=== PATIENT | male | born 1985 | race Caucasian/White ===

== ENCOUNTER 2019-05-02 17:23 | Inpatient (IN) ==
[2019-05-02] MEDS ORDERED: MoRPHine SULFATE 10 MG/ML CARP/VIAL IV STA ×3 (17:32→20:02)
[2019-05-02] MEDS ORDERED: SODIUM CHLORIDE 0.9% 1000ML 1,000 ML IV SCH (17:45)
[2019-05-02 18:06] LABS: Basophils # (auto) 0.02 K/uL (0-0.2); Basophils % (auto) 0.2 %; Eosinophils # (auto) 0.04 K/uL (0-0.5); Eosinophils % (auto) 0.4 %; Hematocrit (blood only) 38.5 % (42-52); Hemoglobin 12.8 g/dL (14.0-18.0); Immature Granulocytes # (auto) 0.03 K/uL (0.00-0.02); Immature Granulocytes % (auto) 0.3 %; Lymphocytes # (auto) 1.07 K/uL (1.2-3.4); Lymphocytes % (auto) 11.4 %; Mean Corpuscular Hemoglobin 31.1 pg (25-34); Mean Corpuscular Hgb Conc 33.2 g/dL (32-36); Mean Corpuscular Volume 93.7 fL (80-100); Mean Platelet Volume 10.2 fL (7.4-10.4); Monocytes # (auto) 0.36 K/uL (0.11-0.59); Monocytes % (auto) 3.8 %; Neutrophils % (auto) 83.9 %; Platelet Count 212 K/uL (130-400); RDW Coefficient of Variation 13.7 % (11.5-14.5); RDW Standard Deviation 47.4 fL (36.4-46.3); Red Blood Count 4.11 M/uL (4.7-6.1); White Blood Count 9.42 K/uL (4.8-10.8)
--- NOTE | 2019-05-02 18:17 | XRay Report ---
XR chest 1V portable CLINICAL HISTORY: Trauma. Right femoral fracture. Preoperative chest. COMPARISON STUDY: No previous studies for comparison. FINDINGS: The cardiac and mediastinal contours appear normal given the supine technique. No pneumotho rax is visualized on the supine study. There is no focal pulmonary consolidation. No pleural effusion s are visualized.[ IMPRESSION: No active disease in the chest. Electronically signed by: Aakash Reeder M.D. 05/02/2019 6:14 PM
--- NOTE | 2019-05-02 18:17 | XRay Report ---
XR pelvis 1-2V routine CLINICAL HISTORY: Right femoral pain. Trauma. COMPARISON: None. DISCUSSION: There is an intertrochanteric right hip fracture with subtrochanteric extension. There is no dislocation. There is no SI joint diastases. There is no symphysis diastases. IMPRESSION: Intertrochanteric right hip fracture with subtrochanteric extension Electronically signed by: Aakash Reeder M.D. 05/02/2019 6:15 PM
--- NOTE | 2019-05-02 18:21 | XRay Report ---
XR femur RT 2V routine CLINICAL HISTORY: Right femur pain COMPARISON: None. DISCUSSION: There is an oblique fracture of the proximal femur with intertrochanteric extension. The fracture begins 15 cm inferior to the intertrochanteric line. There is 18 mm of maximal distraction. There is no dislocation. IMPRESSION: Oblique fracture of the proximal femur with intertrochanteric extension Electronically signed by: Aakash Reeder M.D. 05/02/2019 6:19 PM
[2019-05-02 18:23] LABS: Alanine Aminotransferase 30 U/L (12-78); Albumin Level 4.1 gm/dl (3.4-5.0); Aspartate Aminotransferase 24 U/L (15-37); BUN Creatinine Ratio 26.9 (10-20); Blood Urea Nitrogen 24 mg/dl (7-18); Calcium 8.8 mg/dl (8.5-10.1); Carbon Dioxide 27 mmol/L (21-32); Chloride 104 mmol/L (98-107); Est GFR (African American) 129.6; Est GFR (Non-African American) 111.8; Glucose 113 mg/dl (70-99); Potassium 3.5 mmol/L (3.5-5.1); Sodium 138 mmol/L (136-145)
[2019-05-02 18:25] LABS: Albumin Globulin Ratio 1.3 (0.9-2); Alkaline Phosphatase 51 U/L (45-117); Bilirubin,Total 0.6 mg/dl (0.2-1); Globulin 3.1 gm/dl (2.5-4.0); Total Protein 7.2 gm/dl (6.4-8.2)
[2019-05-02] MEDS ORDERED: MoRPHine SULFATE 4 MG/ML 1 ML CARP\\VIAL ONE ×2 (18:53→20:04)
[2019-05-02] MEDS ORDERED: ONDANSETRON INJ 2 MG/ML 2 ML VIAL IV STA (18:53)
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
[2019-05-02] MEDS ORDERED: ACETAMINOPHEN 325 MG TAB PO PRN (20:17)
[2019-05-02] MEDS ORDERED: ONDANSETRON INJ 2 MG/ML 2 ML VIAL IV PRN (20:17)
[2019-05-02] MEDS ORDERED: ALUMINUM/MAGNESIUM SUSP 30 ML UDC PO PRN (20:22)
[2019-05-02] MEDS ORDERED: OXYCODONE HCL IR 5 MG TAB (IMMEDIATE RELEASE) PO PRN (20:25)
[2019-05-02] MEDS ORDERED: MoRPHine SULFATE 4 MG/ML 1 ML CARP\\VIAL IV PRN (20:26)
[2019-05-02] MEDS ORDERED: diazePAM 2 MG TABLET PO PRN (20:27)
[2019-05-02] MEDS ORDERED: ACETAMINOPHEN 500 MG TAB PO PRN (20:29)
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
[2019-05-02] MEDS: SODIUM CHLORIDE 0.9% 1000ML 1,000 ML IV SCH (23:43)
[2019-05-03] MEDS ORDERED: CEFAZOLIN 2000MG 2,000 MG/15 ML SYR IV SCH ×2 (06:00→20:00)
--- NOTE | 2019-05-03 08:23 | Anesthesiology Consultation ---
Date of Service May 03, 2019 Assessment & Plan Chart Review Chart Review: Acceptable Risk for Surgery and Patient NOT seen in Pre Admission Testing Consults Requested none ASA ASA2 Proposed Anesthesia Anesthesia Type: General and MAC Spinal History Surgery Operation Date: 05/03/19 10:30 Proposed Procedures p Intramedullary Ricky Femur(Right) - Will Campbell Height/Weight Height: 5 ft 11 in Weight: 84.3 kg Allergies Allergy/AdvReac Type Severity Reaction Status Date / Time No Known Allergies Allergy Verified 05/02/19 20:36 Medications Home Medications Medication Instructions Recorded Confirmed Last Taken No Known Home Medications 05/02/19 05/02/19 Unknown Active Medications Generic Name Dose Route Start Last Admin Trade Name Freq PRN Reason Stop Dose Admin Sodium Chloride 1,000 mls @ 100 mls/hr 05/02/19 23:59 05/02/19 23:43 Nss 1000ml IV 06/01/19 23:58 100 mls/hr .Q10H ZACKARY Administration Morphine Sulfate 4 mg 05/02/19 20:26 05/03/19 02:27 Morphine Sulfate IV 05/16/19 20:25 4 mg Q4H PRN Administration Pain NPO Date Last Intake of Fluids: 05/03/19 Time Last Intake of Fluids: 00:00 Date Last Intake of Solids: 05/02/19 Time Last Intake of Solids: 22:00 Past Medical History Medical History No pertinent family history Non-smoker Tibial fracture Left tibia IMN Exercise / Class Metabolic Activity II 4-5 Yardwork/Stairs/Walk up hill Past Anesthesia History No Hx of Anesthesia Complications and No Family Hx of Anesthesia Complications History of PONV No Hx of PONV and No Hx of Motion Sickness Social History Smoking Status: Never smoker Do You Dip or Chew Tobacco: No Hx Alcohol Use: No Hx Substance Use: No Physical Exam Vital Signs Last Vital Signs Temp 37 C 05/03/19 08:01 Pulse 80 05/03/19 08:01 Resp 16 05/03/19 08:01 BP 132/79 05/03/19 08:01 Pulse Ox 98 05/03/19 08:01 Testing Laboratory Results 05/02/19 17:40 05/02/19 17:40 Blood Type A Negative 05/02/19 20:36 Antibody Screen NEGATIVE 05/02/19 20:36 Chest X-Ray Date: 05/02/19 Findings: + NAD
[2019-05-03] MEDS: SODIUM CHLORIDE 0.9% 1000ML 1,000 ML IV SCH ×2 (09:23→16:57)
[2019-05-03] MEDS ORDERED: FLUMAZENIL 0.1 MG/1 ML 10 ML VIAL IV PRN (10:13)
[2019-05-03] MEDS ORDERED: NALOXONE HCL 0.4 MG/1 ML VIAL/CARP IV PRN ×2 (10:13→16:14)
[2019-05-03] MEDS ORDERED: ePHEDrine sulfate 50 MG/ML AMP IV PRN (10:13)
[2019-05-03] MEDS ORDERED: HYDROmorphone INJ 1 MG/ML SYRINGE IV PRN (10:13)
[2019-05-03] MEDS ORDERED: ONDANSETRON INJ 2 MG/ML 2 ML VIAL IV PRN (10:13)
[2019-05-03] MEDS ORDERED: ATROPINE SULFATE 0.1 MG/ML 10ML SYR IV PRN (10:13)
[2019-05-03] MEDS ORDERED: PROMETHAZINE HCL 12.5 MG in SODIUM CHLORIDE 0.9% 50 ML IV PRN (10:13)
[2019-05-03] MEDS ORDERED: ONDANSETRON INJ 2 MG/ML 2 ML VIAL ONE (10:35)
[2019-05-03] MEDS ORDERED: NEOSTIGMINE METHYLSULFATE 5 MG/5 ML SYR ONE (10:35)
[2019-05-03] MEDS ORDERED: MIDAZOLAM HCL 1 MG/ML 2ML VIAL ONE (10:35)
[2019-05-03] MEDS ORDERED: DEXAMETHASONE SOD INJ 4 MG/ML VIAL ONE (10:35)
[2019-05-03] MEDS ORDERED: GLYCOPYRROLATE 0.2 MG/ML VIAL ONE (10:35)
[2019-05-03] MEDS ORDERED: PROPOFOL IV EMULSION 10 MG/ML 20 ML VIAL IV ONE (10:35)
[2019-05-03] MEDS ORDERED: LIDOCAINE HCL 2% 2 ML VIAL/AMP(20MG/ML) INFIL ONE (10:35)
[2019-05-03] MEDS ORDERED: fentaNYL citrate 100 MCG/2 ML VIAL ONE ×2 (10:36→11:51)
[2019-05-03] MEDS ORDERED: BUPIVACAINE 0.5 % 5 MG/1 ML MPF 30ML VIAL ONE (10:44)
[2019-05-03] MEDS ORDERED: EPINEPHrine INJ 1 MG/ML AMP ONE (10:44)
[2019-05-03] MEDS ORDERED: HYDROmorphone INJ 2 MG/ML SYR/VIAL ONE (12:08)
[2019-05-03] MEDS ORDERED: ALBUMIN HUMAN 5% 12.5 GM/250 ML VIAL IV ONE (13:00)
[2019-05-03 14:03] LABS: Hematocrit (blood only) 29.7 % (42-52); Hemoglobin 10.2 g/dL (14.0-18.0)
[2019-05-03] MEDS ORDERED: ESMOLOL HCL INJ 10 MG/ML 10ML VIAL IV ONE (14:33)
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
--- NOTE | 2019-05-03 15:07 | Post Operative Brief Note ---
PG Immediate Post Op with CF Date of Surgery May 03, 2019 Pre & Post Diagnosis Operation Date: 05/03/19 10:30 Pre-Op Diagnosis: displaced and comminuted proximal right femur fracture Post-Op Diagnosis: displaced and comminuted proximal right femur fracture I identified the patient and participated in the time-out.: Yes Procedure Operation Date: 05/03/19 10:30 Actual Procedures p closed reudction right femur; Intramedullary Ricky Right Femur; Right knee aspiration(Right) - Will Cambpell Surgeon Will Campbell Dry Wall Applicator Kulwinder Teague PA-C Estimated Blood Loss 1,000 Findings Consistent with Post-Op Diagnosis Specimens Specimen Description: none per surgeon. Drains Monreal Catheter
--- NOTE | 2019-05-03 15:08 | History & Physical Bridge Note ---
Date of Service May 03, 2019 History & Physical Bridge Note I have examined the patient, reviewed the History & Physical and in the interval since the performance of the History & Physical I have noted the following changes of clinical significance: no changes noted The patient had an uncomplicated night and was ready for the OR in the am. The informed consent was documented before leaving the preop holding area. The limb was signed
--- NOTE | 2019-05-03 15:08 | Operative Report ---
PG Post Operative Report Pre & Post Diagnosis Operation Date: 05/03/19 10:30 Pre-Op Diagnosis: displaced and comminuted proximal right femur fracture Post-Op Diagnosis: displaced and comminuted proximal right femur fracture I identified the patient and participated in the time-out.: Yes Procedure Operation Date: 05/03/19 10:30 Actual Procedures p closed reudction right femur; Intramedullary Ricky Right Femur; Right knee aspiration(Right) - Will Campbell Surgeon Will Campbell Pecan Mallow Dipper Kulwinder Teague PA-C Estimated Blood Loss 1,000 Findings See Below Fracture with significantly comminuted through the subtrochanteric region as expected. The most proximal fragment that included the head and neck and anterior sub-stroke region was captured with a cable which did reduce the 3 main proximal fragment was adequately to get our start point. We then needed traction and internal rotation to reduce the distalmost part of the subtrochanteric comminution. Were able to pass the wire and ream and then redu ce with the nail through the most distal extent of the comminution into the diaphysis of the femur. The femur was fixed with an 11 mm / 130 degree titanium cannulated trochanteric fixation nail of the length of 400 mm. We also used a 11 mm titanium helical blade of 105 mm length. We also used a 1.7 mm cobalt chromium cable with titanium cramp by [employer]. We also use a 5 x 48 mm distal interlock screw and a 5 x 46 mm distal interlock screw. 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 Surgical stabilization was recommended. Description of Procedure Once we had completed our reaming we advanced the nail over the straight wireOn the day of surgery the patient was greeted in the preoperative holding area. He had been admitted for pain control overnight in preparation for the OR in the morning. Informed consent was reviewed and confirmed at that time. Signed informed consent was signed. The operative side was verified by the patient and signed by myself. He was turned over the anesthesia team. He was taken the operative room placed supine on the fracture table and anesthesia was induced and the airway was secured. He was then positioned for surgery with a peroneal post. He was placed in the fracture boot on the operative side with adequate padding and double secured with Coban dressing. Nonoperative side was then placed in a pillow sling against the well leg beam. Provisional fluoroscopy was positioned to ensure adequate viewing. Surgical timeout was called by the circulating nurse and verified by all present. Antibiotics and diffuse equipment was available and functional. The operative site was confirmed. We began the procedure by performing reduction maneuvers which included sequential hip flexion, followed by longitudinal traction, followed by release of this traction and adjustment of internal/external rotation until the main fracture fragments were appropriately aligned. He remained with some flexion to the most proximal head neck fragment that extended towards the substernal region. Once we had provisional reduction we then prepped and draped the right lower extremity in usual sterile fashion for hip fractures and a fracture table. Longitudinal incision was planned over the proximal femur in the middle aspect of the IT band. Incision was made and sharp dissection was carried down with Bovie electrocautery for hemostasis. We elevated anterior and posterior flaps to expose the IT band. We then identified the central point made a longitudinal split from the trochanteric region distally approximately 10 cm. We then evaluate the vastus which had significant ecchymosis. We did have to make a T-incision in the IT band to allow appropriate exposure of the lateral femur. Then you performed a vastus split to expose the lateral femur. Able to feel the major fragmentation anteriorly. We then adjusted her rotation to allow the most optimal route provisional reductio n. Given that we cannot control the flexion of the proximal fragments in the medial spike a cable was then placed. We used fluoroscopy to position the cable passer over this medial spike just under the lesser tuberosity and then passed a titanium cable around this area. We then used the tensor device which did sequentially reduce the spike can pull that proximal fragment out of flexion. 50 kg of pressure was placed on the cable and it was left provisionally locked. This reduced our proximal comminution well. We then adjusted our distal alignment. We did take some lateral pressure to pull out proximal fragment out of valgus correction out of varus. We then determined that we had our best provisional reduction and began our start point. A pin was adjusted towards the tip of the greater to trochanter and a small spoke: Incision was made. We passed the pin down to the start point and confirmed its position using fluoroscopy. A larger skin incision was made proximally to allow passage of the reamer and cannulas. Once her start point was established were able to advance the pin. Significant effort was made to ensure appropriate position and a more medial start point over the trochanter. We also treated posteriorly for predictable reduction of the proximal comminution and capture of the main posterior lateral fragment. The pin was passed past the lesser trochanter under fluoroscopic guidance both AP and lateral plane. We then used the opening reamer and focused on removing lateral bone on the trochanter to ensure we avoided varus position as much as possible. We advanced the opening reamer slowly towards the lesser trochanter into the proximal aspect of the comminuted fracture segment. We then removed the reamer and passed a reduction wire with a bent tip. We then watch this tip as it passed into the diaphysis of the femur at the distal aspect of the comminuted segment. We are able to pass the wire adequately into the distal femur and down towards the proximal pole of the patella. We then began reaming at 8.5 removed by 0.5 and 1 cm increments towards a 12.5. Each time we watched the reamer past the major comminuted fragment at the distal aspect that did remain with some deformity that was not reducible unless another large incision was made. The reamer did help realign some of the fragments and adequately open up the diaphysis for passage of the nail. We then swapped our nails through reduction cannula because the large band would not allow passes or reamer distally. We were able to ream to the 12.5 to the far and down to the proximal pole the patella.. We use the bed to the nail to pass the nail and capture distal diaphyseal fragment. Once it was captured the nail was rotated back to reduce that fragment which did reduce it well. The nail was then passed under fluoroscopic guidance down to the distal femur to the level of the proximal pole the patella. We did have to tap the nails with a mallet to pass through the tight diaphysis. Once the nail was in place we did release traction and adjusted rotation under fluoroscopic guidance. We then planned our cephalo-medullary screw. Once the nail was distal lysed enough we drilled for our cephalo-medullary blade screw. We had to adjust to achieve the center center position by directing her pain more anteriorly. Once she had center center on the AP we did confirm this on the lateral. The wire did want to cheat posteriorly and we had to readjust more anterior trajectory. Once we had center center position we drilled the lateral cortex followed by the triple reamer to open up for the helical blade. We measured using the cannula system to a length of 110, so we selected 105 mm helical blade. The blade was passed over the wire per the blower insulator's directions and did achieve adequate purchase in the femoral head neck. We appear to have adequate reduction of that proximal fragment include the femoral head neck. Once that proximal fragments captured we ensure there was no traction left on the femur and wiggle the foot to ensure that did not fracture can settle to its appropriate level. We did evaluate on fluoroscopy appeared to have good reduction using a cortical keys. We then moved distally to perform a interlock screws. These were done with a perfect [place] method and we used 2 interlock screws. We then thoroughly irrigated all the incisions. We began our closure. The IT band T cut was closed using 0 Ethibond suture. We then closed the deep dermal layers in the distal fascial band incisions with 0 Vicryl suture. We then closed the deep dermis using 3-0 Vicryl followed by geraldine in her final subcuticular closure. Wounds were dressed with sterile Xeroform sterile gauze and foam tape. Patient tolerated procedure well, was repositioned on his hospital bed and extubated in the operating room. He was transported the PACU in stable condition. Disposition: He will begin with partial weightbearing and advance quickly towards weightbearing as tolerated. He will be in the hospital to undergo physical therapy to be stable for discharge or transfer to a rehabilitation hospital. He did state his preference to be to go home as soon as possible. We will use routine DVT prophylaxis consisting of low molecular weight heparin, with likely transition to aspirin to encourage patient compliance. I attest to the content of the Intraoperative Record and any orders documented therein. Any exceptions are noted below.
[2019-05-03] MEDS ORDERED: HYDROmorphone INJ 0.5 MG/0.5 ML SYR IV PRN (15:19)
--- NOTE | 2019-05-03 15:54 | XRay Report ---
XR femur RT 2V routine HISTORY: 33 years-old Male post-op status post ORIF of a proximal right femoral fracture COMPARISON: Pelvis radiograph 05/02/2019 TECHNIQUE: 2 views of the right femur FINDINGS: Status post placement of an intratrochanteric nail with elongated medullary zev and proximal femoral shaft cerclage wire fixating the previously noted acute comminuted and displaced intertrochanteric an d subtrochanteric fracture. There is improved alignment status post fixation. 10 mm lateral displacem ent of the proximal femoral shaft component. Lateral skin geraldine are noted along with expected posts urgical soft tissue swelling and deep tissue air. No retained foreign body identified. Surgical drain age catheter present. Right knee joint effusion. IMPRESSION: Improved alignment of the right proximal femoral fracture status post placement of a intr atrochanteric nail with elongated medullary zev. The above report was generated using voice recognition software. It may contain grammatical, syntax o r spelling errors. Electronically signed by: George Rajan M.D. 05/03/2019 3:52 PM
[2019-05-03 16:03] LABS: Hematocrit (blood only) 29.7 % (42-52); Hemoglobin 9.9 g/dL (14.0-18.0)
--- NOTE | 2019-05-03 16:54 | Anesthesiology Progress Note ---
Date of Service May 03, 2019 Anesthesia Post Procedure Vital Signs Vital Signs: Temp Pulse Pulse Pulse Pulse Resp BP 05/03/19 15:53 88 19 05/03/19 15:45 96 H 19 05/03/19 15:35 100 H 19 05/03/19 15:25 89 21 05/03/19 15:15 95 H 22 05/03/19 15:08 37.3 C 105 H 10 L 05/03/19 08:01 37 C 80 16 05/02/19 23:23 37.3 C 87 18 05/02/19 22:06 37.0 C 77 18 05/02/19 20:59 90 17 146/79 H 05/02/19 20:09 90 19 133/66 05/02/19 18:56 91 H 21 146/77 H 05/02/19 17:45 05/02/19 17:30 36.9 C 88 20 122/68 BP Pulse Ox 05/03/19 15:53 144/81 H 97 05/03/19 15:45 140/72 99 05/03/19 15:35 147/78 H 100 05/03/19 15:25 148/88 H 100 05/03/19 15:15 145/84 H 100 05/03/19 15:08 145/82 H 100 05/03/19 08:01 132/79 98 05/02/19 23:23 127/71 95 05/02/19 22:06 129/73 97 05/02/19 20:59 96 05/02/19 20:09 97 05/02/19 18:56 97 05/02/19 17:45 97 05/02/19 17:30 97 Pain Intensity Leg: Pain Intensity: 5 Right Leg: Pain Intensity: 5 Transfer of Care Handoff Completed per policy Notes Mental Status: alert / awake / arousable Patient Amnestic to Procedure: Yes Nausea / Vomiting: adequately controlled Pain: adequately controlled Airway Patency, RR, SpO2: stable & adequate BP & HR: stable & adequate Hydration State: stable & adequate Anesthetic Complications: no major complications apparent
[2019-05-03] MEDS ORDERED: ACETAMINOPHEN 500 MG TAB PO PRN (19:56)
[2019-05-03] MEDS ORDERED: diazePAM 2 MG TABLET PO PRN (19:57)
[2019-05-03] MEDS ORDERED: ONDANSETRON 4 MG OD TAB PO PRN (19:59)
[2019-05-03] MEDS: NAPROXEN 250 MG TAB PO SCH (20:12)
[2019-05-04] MEDS: SODIUM CHLORIDE 0.9% 1000ML 1,000 ML IV SCH (04:05)
[2019-05-04 05:36] LABS: Basophils # (auto) 0.01 K/uL (0-0.2); Basophils % (auto) 0.2 %; Hematocrit (blood only) 25.3 % (42-52); Hemoglobin 8.8 g/dL (14.0-18.0); Immature Granulocytes # (auto) 0.01 K/uL (0.00-0.02); Immature Granulocytes % (auto) 0.2 %; Lymphocytes % (auto) 20.4 %; Mean Corpuscular Hemoglobin 32.5 pg (25-34); Mean Corpuscular Hgb Conc 34.8 g/dL (32-36); Mean Corpuscular Volume 93.4 fL (80-100); Mean Platelet Volume 10.1 fL (7.4-10.4); Monocytes # (auto) 0.57 K/uL (0.11-0.59); Monocytes % (auto) 9.7 %; Neutrophils # (auto) 4.09 K/uL (1.4-6.5); Neutrophils % (auto) 69.5 %; Platelet Count 153 K/uL (130-400); RDW Standard Deviation 47.9 fL (36.4-46.3); Red Blood Count 2.71 M/uL (4.7-6.1); White Blood Count 5.88 K/uL (4.8-10.8)
[2019-05-04 06:00] LABS: BUN Creatinine Ratio 16.5 (10-20); Calcium 8.3 mg/dl (8.5-10.1); Creatinine Clr Calc Pharmacy 150.4 ml/min; Est GFR (African American) 139.3; Est GFR (Non-African American) 120.2
[2019-05-04] MEDS ORDERED: ENOXAPARIN INJ 40 MG/0.4 ML SYR SQ SCH (07:00)
[2019-05-04] MEDS ORDERED: FERROUS SULFATE 325 MG TAB PO SCH (08:00)
--- NOTE | 2019-05-04 08:28 | Orthopedic Progress Note ---
Date of Service May 04, 2019 Assessment & Plan (1) Fracture, proximal femur: Making extraordinary progress in regards to pain and function. We discussed expectations for continued low H/H for a couple weeks. No indication for transfusion today. Pain is well-controlled. Wants to go home on Tylenol and Motrin. We discussed DVT risks and I recommend daily aspirin for 6 weeks. If clears stairs with PT, he may be discharged to home today. Will prepare. Present on Admission?: Yes Subjective Denies pain as he stands at the bedside. 'Somewhat uncomfortable.' No issues overnight per nursing. Wants to go home today. Review of Systems Review of Systems: All systems reviewed & are unremarkable except as noted in HPI & below Physical Exam Constitutional: WD/WN, vitals as above + well hydrated; no acute distress and not ill appearing Musculoskeletal: RLE: Dressing reinforced but intact. Can perform standing SLR with minimal lag. +PF/DF/EHL. SILT thoughout. 2+dp pulse Results & Data Vital Signs (Past 12 Hours) Vital Signs Temp Pulse Resp BP BP Pulse Ox 05/04/19 07:07 37.3 C 106 H 16 133/78 99 05/04/19 03:40 37.4 C 90 18 128/75 97 05/03/19 23:01 37.2 C 91 H 18 135/76 97 Laboratory Tests 05/04/19 04:58 Hgb 8.8 L Hct 25.3 L PG Care Time/CCT Total # of Minutes Spent Total Time Spent with Patient: Total time spent is greater than 50% in coordination of care (as documented) at patient's floor/unit and/or counseling patient:
--- NOTE | 2019-05-04 08:39 | Discharge Summary ---
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 He had immediate pain and deformity and inability to bear weight. He was brought to the [facility] emergency room by emergency medical services. Reports pain that is controllable with medications. He denies any numbness or tingling distally. Denies any previous hip pain or previous fractures about his femur. Admission Exam Per Admitting Provider Right femur deformity Principal Diagnosis Right proximal femur fracture from Mule kick. Discharge Exam NAD, Well-appearing. Standing at bedside. Musculoskeletal Can actively flex and extend at hip and knee. +DF/PF/EHL. SILT. Palpable PT and DP pulses. Wounds well dressed. Discharge Data Allergies Allergy/AdvReac Type Severity Reaction Status Date / Time No Known Allergies Allergy Verified 05/02/19 20:36 Consultations 05/02/19 19:41 ED Decision to Admit Stat 05/02/19 20:22 Consult Case Management - Discharge Planning Routine 05/03/19 16:14 Consult Case Management - Discharge Planning Routine Procedures Performed Operation Date: 05/03/19 10:30 Actual Procedures p closed reudction right femur; Intramedullary Ricky Right Femur; Right knee aspiration(Right) - Will Campbell Ordered Studies 05/02/19 18:49 CT femur RT wo con Stat 05/03/19 07:00 FL fluoroscopy <1hr Routine FL hip RT 2-3V Routine Hospital Course (1) Femur fracture, right: Admitted preoperatively for unstable proximal femur fracture. Underwent ORIF on 05/03/19 without complication. Requested discharge on POD1. Found to be stable and acceptably ambulatory with walker/crutches. Discharged to home care. Total Time Total Time Spent Total Time Spent (In Minutes): 20 minutes Total Time Includes: Examination of the Patient, Discharge Planning, Medication Reconciliation and Other Discharge Plan Discharge Items Patient Disposition: Home - Self-Care Reason For Visit: FEM FRACTURE Discharge Diagnosis: Right proximal femur fracture Condition on Discharge: Good Activity: As commented below Activity Comment: Use crutches until pain is gone. Weight-bearing as tolerated. Lifting: Wait until after follow-up appointment Bathing: May shower/bathe in 3 days Bathing Comment: Keep incisions covered with same dressings for 3 days. Non-emergency contact: Surgeon Call non-emergency contact if: your pain is not controlled, your temperature is above 101, your wound has increased redness, your wound has increased drainage and your wound pain has increased Follow-up/Referrals: Will Campbell [Surgeon] - 05/19/19 10:00 am (Please come to clinic in the morning of 05/19/19 to have geraldine removed and get new x-rays.) PCP,NO [Primary Care Provider] - Diet: Regular Addtl Attending Provider Instructions: Keep dressings in place and area clean and dry for 3 days. After 3 days, you may remove dressing and gently cleanse the area around the incision. Do not soak or submerse the wounds for at least 3 weeks. You geraldine will be removed in 2 weeks in clinic. Use crutches to help with walking. You can place increasing weight on the right leg as pain allows. Discontinue crutch assist when you can weightbear without discomfort. Continue to use Aspirin 325mg every day for 6 weeks to reduce the risk of blood clots. For pain, you can use tylenol and motrin. Also, applying ice will reduce pain from swelling. Pending Studies at Discharge: No Stand-Alone Forms: My [employer], Smoking Cessation Medications and DC Order Prescriptions: No Action No Known Home Medications RF: 0 Discharge Orders: Discharge Order (Routine); Ordered 05/04/19 Ordered By: Will Roy/Other Patient Handouts: Surgery Prevent DVT After, Fx Femur ORIF Admission Data Admit Date/Time: 05/02/19 20:17 Attending Provider: Will Campbell Admit Provider: Will Campbell Primary Care Provider: PCP,NO Other Providers: Will Campbell Other Interventions: Discharge Summary Assessment (RN) Last Done: 05/04/19 11:01 DC Date/Time DO NOT enter until pt leaves facility: 05/04/19 12:13
[2019-05-04] MEDS: NAPROXEN 250 MG TAB PO SCH (08:54)
[2019-05-04] MEDS ORDERED: ASCORBIC ACID 500 MG TAB PO SCH (09:00)
== END 2019-05-04 12:13 | disposition home or self-care (01) | DRG 482 ==
LOC: ED 17:23 → 3E 20:17